=== PATIENT | male | born 1960 | race Caucasian/White ===

== ENCOUNTER 2023-12-11 13:30 | Outpatient (AMB) | payer OTHER, SELFPAY ==
[2023-12-11 13:43] VITALS: BMI 36.9
--- NOTE | 2023-12-11 13:43 | MHC.OFFVIS ---
Vital Signs 12/11/23 13:43 Height 5 ft 9 in Weight 250 lb BMI 36.9 Intake Visit Reasons: Lt Arm/Bicep Pain Intake Note: Stanley is a 62 year old right hand dominant male who presents today as a new patient with complaints of a Left arm/ Bicep injury that occurred at work on 09/03/23. Patient reports that he was at work lifting and he felt something give way in his arm, he was sore after this happened. He rested for about a week after the injury hoping that his symptoms would resolve. He then notice bruising in the bicep. He does not feel pain in the bicep but he does have some mild pain in the anterior aspect of the left shoulder. He has some weakness of the left arm, Denies numbness and tingling. He was seen at [facility] - where no treatment was offered. He has not done PT He is currently working full time staff interpreter regular duty. Allergies celecoxib [From Celebrex] Adverse Reaction (Verified 12/11/23 13:49) Rash HPI HPI Lt Arm/Bicep Pain: Details: Stanley is a 62 year old right hand dominant male who presents today as a new patient with complaints of a Left arm/ Bicep injury that occurred at work on 09/03/23. Patient reports that he was at work lifting and he felt something give way in his arm, he was sore after this happened. He rested for about a week after the injury hoping that his symptoms would resolve. He then notice bruising in the bicep. He does not feel pain in the bicep but he does have some mild pain in the anterior aspect of the left shoulder. He has some weakness of the left arm, Denies numbness and tingling. He was seen at [facility] - where no treatment was offered. He has not done PT He is currently working full time staff interpreter regular duty. [facility] Surgical History (Updated 12/11/23 @ 13:52 by Trina Duqeu CMA) History of appendectomy History of right knee joint replacement Social History (Updated 12/11/23 @ 13:52 by Trina Dquue CMA) Current occupational status: employed Current occupation: [employer] Physical Exam Vital Signs: BMI result Body Mass Index 36.9 Extrem Other: On exam there is mild loss of distal biceps contour but I can palpate a question of a bicipital tendon. He is weak in supination. There is no pain. Assessment & Plan Assessment & Plan (1) Traumatic partial tear of left biceps tendon: Code(s): S46.212A - Strain of muscle, fascia and tendon of other parts of biceps, left arm, initial encounter Category: Medical Plan: This is a 62-year-old gentleman who was involved in a workplace injury approximately 3 months ago. He had an injury to his left distal biceps. He is right-hand dominant. He has a positive hook test and is weak in supination and I suspect it high-grade partial versus complete biceps tendon tear. He has no pain and he can not get an MRI because of an implantable cardiac device. I recommend physical therapy and continue work as tolerated. I had a long discussion with him regarding the pathophysiology of an untreated distal biceps rupture. He expressed understanding. We will follow up with me in 6 weeks. Coding Level of Care Code New Pt Level 3 (00262) Diagnoses Traumatic partial tear of left biceps tendon S46.212A
== END 2023-12-11 14:24 | disposition home or self-care (01) ==
LOC: HO.HOS 13:30
PROVIDERS: PCP Internal Medicine; Visit Provider Orthopaedic Surgery
DX: S46.212A Strain of muscle, fascia and tendon of other parts of biceps, left arm, initial encounter (principal)
CPT/HCPCS: 99203

== ENCOUNTER → 2023-12-11 13:30 | Outpatient (BNVA) | payer OTHER, SELFPAY | PROVIDERS: PCP Internal Medicine; Visit Provider Orthopaedic Surgery | DX: S46.212A Strain of muscle, fascia and tendon of other parts of biceps, left arm, initial encounter (principal) | CPT/HCPCS: 99202 ==

== ENCOUNTER 2024-01-22 10:53 | Outpatient (AMB) | payer OTHER, SELFPAY ==
--- NOTE | 2024-01-22 10:56 | A.OFFVIS_ITS ---
Intake Visit Reasons: OV - Left Partial Bicep Tear - 09/03/23 Intake Note: James is a 63 year old right hand dominant male who presents today for a follow up of his Left partial distal Biceps tear 09/03/23. This injury occurred at work while he was lifting a heavy object and he felt a pop and his arm gave way. He is unable to get an MRI due to implantable cardiac device. He was given an order for physical therapy. Allergies celecoxib [From Celebrex] Adverse Reaction (Verified 12/11/23 13:49) Rash HPI HPI OV - Left Partial Bicep Tear - 09/03/23: Details: James is a 63 year old right hand dominant male who presents today for a follow up of his Left partial distal Biceps tear 09/03/23. This injury occurred at work while he was lifting a heavy object and he felt a pop and his arm gave way. He is unable to get an MRI due to implantable cardiac device. He was given an order for physical therapy. [facility] Surgical History (Updated 12/11/23 @ 13:52 by Trina Duque CMA) History of appendectomy History of right knee joint replacement Social History (Updated 12/11/23 @ 13:52 by Trina Duque CMA) Current occupational status: employed Current occupation: [employer] Physical Exam Extrem Other: A 4+ out of 5 strength with resisted left forearm supination. Negative hook te st. No pain with resisted supination. Full elbow range of motion. Assessment & Plan Assessment & Plan (1) Traumatic partial tear of left biceps tendon: Code(s): S46.212A - Strain of muscle, fascia and tendon of other parts of biceps, left arm, initial encounter Category: Medical Plan: Traumatic partial tear left distal biceps that is stable. It is not painful. He is continuing physical therapy. He is working without restriction. Continue physical therapy and follow up in 6 weeks. No work restrictions necessary. Coding Level of Care Code Est Pt Level 3 (60690) Diagnoses Traumatic partial tear of left biceps tendon S46.212A
== END 2024-01-22 11:55 | disposition home or self-care (01) ==
PROVIDERS: PCP Internal Medicine; Visit Provider Orthopaedic Surgery
DX: S46.212A Strain of muscle, fascia and tendon of other parts of biceps, left arm, initial encounter (principal)
CPT/HCPCS: 99213

== ENCOUNTER → 2024-01-22 10:53 | Outpatient (BNVA) | payer OTHER, SELFPAY | PROVIDERS: PCP Internal Medicine; Visit Provider Orthopaedic Surgery | DX: S46.212A Strain of muscle, fascia and tendon of other parts of biceps, left arm, initial encounter (principal); X50.0XXA Overexertion from strenuous movement or load, initial encounter; Y93.89 Activity, other specified; Y92.63 Factory as the place of occurrence of the external cause; Y99.0 Civilian activity done for income or pay | CPT/HCPCS: 99212 ==

== ENCOUNTER 2024-08-05 09:53 | Outpatient (AMB) | payer OTHER, SELFPAY ==
[2024-08-05 10:06] VITALS: BMI 36.9
--- NOTE | 2024-08-05 10:06 | A.OFFVIS_ITS ---
Vital Signs 08/05/24 10:06 Height 5 ft 9 in Weight 250 lb BMI 36.9 Intake Visit Reasons: OV- Left Partial Bicep Tear -09/03/23 Intake Note: James is a 63 year old right hand dominant male who presents today for a follow up of his Left partial distal Biceps tear 09/03/23. This injury occurred at work while he was lifting a heavy object and he felt a pop and his arm gave way. Currently working without restrictions. Patient reports that he is doing well he has some random sharp pains- this mostly happens with overhead movements. Denies numbness and tingling. Allergies celecoxib (From Celebrex) Adverse Reaction (Verified 12/11/23 13:49) Rash HPI HPI OV- Left Partial Bicep Tear -09/03/23: Details: Stanley is now approximately 11 months status post partial left biceps tear. He has returned to work without restriction and feels well. He states he occasionally has some shoulder pain but for the most part feels like he has returned to normal. [facility] Surgical History (Updated 12/11/23 @ 13:52 by Trina Duque CMA) History of appendectomy History of right knee joint replacement Social History (Updated 12/11/23 @ 13:52 by Trina Duque CMA) Current occupational status: employed Current occupation: [employer] Physical Exam Vital Signs: BMI result Body Mass Index 36.9 Extrem Other: Left elbow exam is normal. He has full range of motion. Full strength with flexion and resisted wrist supination. Palpable biceps tendon with no discomfort. Assessment & Plan Assessment & Plan (1) Traumatic partial tear of left biceps tendon: Code(s): S46.212A - Strain of muscle, fascia and tendon of other parts of biceps, left arm, initial encounter Category: Medical Plan: This is a 63-year-old gentleman with a traumatic partial tear of his left biceps. He is doing well. He has no weakness or pain. He has reached maximum medical improvement. Follow up not necessary. Plan Reached MMI Follow up PRN, contact me with any questions or concerns Coding Level of Care Code Est Pt Level 3 (27844) Diagnoses Traumatic partial tear of left biceps tendon S46.212A
--- OUTSIDE RECORDS SUMMARY | 2024-08-05 11:17 | XMS_ITS ---
Author Name [facility] Organization Unknown Encounters Encounter Type Encounter Reason Primary Diagnosis Location Date Ambulatory [facility] 11/04/2023
== END 2024-08-05 10:27 | disposition home or self-care (01) ==
LOC: HO.HOS 09:53
PROVIDERS: PCP Internal Medicine; Visit Provider Orthopaedic Surgery
DX: S46.212A Strain of muscle, fascia and tendon of other parts of biceps, left arm, initial encounter (principal)
CPT/HCPCS: 99212

== ENCOUNTER → 2024-08-05 09:53 | Outpatient (BNVA) | payer OTHER, SELFPAY | PROVIDERS: PCP Internal Medicine; Visit Provider Orthopaedic Surgery | DX: S46.212A Strain of muscle, fascia and tendon of other parts of biceps, left arm, initial encounter (principal) | CPT/HCPCS: 99212 ==